=== PATIENT | male | born 1975 | race Caucasian/White ===

== ENCOUNTER 2016-08-31 05:48 | Emergency (ER) | payer SELFPAY ==
--- NOTE | ~2016-08-31 | CR253 ---
[facility] A Service of [facility] RADIOLOGY TEXT RESULTS PATIENT: BARBARA SILVA LOCATION: [facility] : 79 UNIT #: [id number] AGE: [address]: Joe Mcknena MD SEX: M ORDER DR: [id number] [facility] [address] [place], [place] [address] [id number] E MR#: [id number] Acc #: [id number] NAME: BARBARA SILVA : 1975 SEX: M STUDY DATE/TIME: 08/31/2016 6:25 UNIT: [facility] ROOM: STUDY DESCRIPTION: CR Tibia and Fibula 2 Views Rt Attending Physician: Joe Mckenna M.D. Ordering Physician: Joe Mckenna M.D. Primary Care Physician: Primary Care Physician No MEDICAL IMAGING REPORT This report is preliminary unless electronic signature is present EXAM Right tibia-fibula, 2 views COMPARISON Right knee radiographs dated March 28, 2009. INDICATION 41-year-old male with right lower leg pain after waking up this morning. FINDINGS Minimal enthesopathy at the Achilles insertion of the calcaneus. No evidence of acute fracture or focal osseous destruction. IMPRESSION No radiographic abnormality. Minimal Achilles enthesopathy. Dictated by... Yogesh Toney M.D. THIS IS AN ELECTRONICALLY VERIFIED REPORT Yogesh Toney M.D. at 09/07/2016 1:49 PM Jessica TD: 08/31/2016 10:37 JOB #: [id number] MEDICAL IMAGING REPORT Page 1 of 1 COPY
--- NOTE | ~2016-08-31 | CR151 ---
[facility] A Service of [facility] RADIOLOGY TEXT RESULTS PATIENT: BARBARA SILVA LOCATION: [facility] : 79 UNIT #: [id number] AGE: [address]: Joe Mckenna MD SEX: M ORDER DR: [id number] [place], [place] [address] [id number] E MR#: [id number] Acc #: [id number] NAME: BARBARA SILVA : 1975 SEX: M STUDY DATE/TIME: 08/31/2016 6:21 UNIT: [facility] ROOM: STUDY DESCRIPTION: CR Hip Min 2 Views Rt Attending Physician: Joe Mckenna M.D. Ordering Physician: Joe Mckenna M.D. Primary Care Physician: Primary Care Physician No MEDICAL IMAGING REPORT This report is preliminary unless electronic signature is present EXAM Right hip, 2 views COMPARISON None INDICATION 41-year-old male with right hip pain after waking up today. 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 There is subchondral cystic change at the roof of the right acetabulum, degenerative in nature. Right hip is anatomically aligned. No evidence of acute fracture or suspicious osseous lesion. IMPRESSION 1. No acute fracture, dislocation or suspicious osseous lesion at the right hip. 2. [id number] degenerative changes of both hips as described in the body of the report. Dictated by... Yogesh Toney M.D. THIS IS AN ELECTRONICALLY VERIFIED REPORT Yogesh Toney M.D. at 09/07/2016 1:50 PM MÓNICA/leonidas TD: 08/31/2016 10:35 JOB #: [id number] MEDICAL IMAGING REPORT [facility] A Service of [facility] RADIOLOGY TEXT RESULTS PATIENT: BARBARA SILVA LOCATION: [facility] : 79 UNIT #: [id number] AGE: [address]: Joe Mckenna MD SEX: M ORDER DR: Page 1 of 1 COPY
[~2016-08-31 05:48] MED LIST: ACETAMINOPHEN PO; AMOXIL500 M1 PO; BACTRIM DS TABL1 TA1 PO; BACTRIM DS TABL1 TAB PO; CLEOCIN PO; COLACE PO; DOXYCYCLINE150 MG PO; KEFLEX500 MG PO; LORTAB 7.5-5001 TAB PO; LORTAB PO; MOBIC PO; NAPROSYN500 MG PO; PREDNISONE PO; TYLOX 5/500 CAP1 CAP PO; VICODIN 5/1 TAB 5/50 PO; VICODIN 5/500 T1 TAB PO; ZYVOX PO
== END 2016-08-31 08:22 | disposition home or self-care (01) ==
LOC: CED 05:48
DX: F11.10 Opioid abuse, uncomplicated (principal); M25.551 Pain in right hip; F17.200 Nicotine dependence, unspecified, uncomplicated; Z88.0 Allergy status to penicillin
CPT/HCPCS: 36415; 73502; 73590; 96361; 96374; 99284; J2405

== ENCOUNTER 2016-09-06 05:45 | Emergency (ER) | payer SELFPAY | END 2016-09-06 07:52 | disposition home or self-care (01) | LOC: CED 05:45 | DX: T43.621A Poisoning by amphetamines, accidental (unintentional), initial encounter (principal); T40.1X1A Poisoning by heroin, accidental (unintentional), initial encounter; F17.210 Nicotine dependence, cigarettes, uncomplicated; Y92.9 Unspecified place or not applicable | CPT/HCPCS: 99282 ==

== ENCOUNTER 2016-10-19 10:19 | Emergency (ER) | payer SELFPAY ==
[~2016-10-19] VITALS: Ht 188 cm; Wt 86.2 kg
--- NOTE | ~2016-10-19 | CR72 ---
[facility] A Service of [facility] RADIOLOGY TEXT RESULTS PATIENT: BARBARA SILVA LOCATION: [facility] : 79 UNIT #: [id number] AGE: [address]: Prosper Kitchen MD SEX: M ORDER DR: [id number] [address] [place], [place] [address] [id number] E MR#: [id number] Acc #: [id number] NAME: BARBARA SILVA : 1975 SEX: M STUDY DATE/TIME: 10/19/2016 11:03 UNIT: [facility] ROOM: STUDY DESCRIPTION: CR Chest Single View Portable Ordering Physician: [facility] MEDICAL IMAGING REPORT This report is preliminary unless electronic signature is present EXAM Single view chest INDICATIONS Overdose. Shortness of air. Left-sided chest pain. FINDINGS Single portable AP view of the chest without comparison. Heart and mediastinal contours normal. Lungs are clear. No pleural effusion. IMPRESSION No acute cardiopulmonary findings. Dictated by... Michael Rizzo M.D. THIS IS AN ELECTRONICALLY VERIFIED REPORT Michael Rizzo M.D. at 10/19/2016 2:18 PM RPWanda/tanna TD: 10/19/2016 14:15 JOB #: [id number] MEDICAL IMAGING REPORT Page 1 of 1 COPY
[2016-10-19 10:56] LABS: POC - CKMB <1.0 ng/mL (0.0-7.9); POC - TROPONIN <0.05 ng/mL (<=0.05)
== END 2016-10-19 15:20 | disposition home or self-care (01) ==
LOC: CED 10:19
PROVIDERS: Emergency Medicine
DX: T40.1X1A Poisoning by heroin, accidental (unintentional), initial encounter (principal); R07.89 Other chest pain; F17.210 Nicotine dependence, cigarettes, uncomplicated; Z98.890 Other specified postprocedural states; Z88.0 Allergy status to penicillin; Z91.040 Latex allergy status
CPT/HCPCS: 71010; 82553; 84484; 99284